=== PATIENT | male | born 1950 | race Caucasian/White ===

== ENCOUNTER 2017-03-26 18:57 | Emergency (ER) | payer MEDICARE, OTHER ==
[2017-03-26 19:40] LABS: BASOPHILS % 0.6 (0.0-1.5); EOSINOPHILS % 1.8 % (0.0-6.8); MEAN CORPUSCULAR HEMOGLOBIN 30.9 pg (28.0-34.0); MEAN CORPUSCULAR VOLUME 95.2 fl (80.0-100.0); MONOCYTES % 4.2 % (0.0-11.0); NEUTROPHILS # 6.1 # k/uL (1.4-7.7)
--- NOTE | 2017-03-26 20:02 | ED Physician Documentation ---
Lower Extremity Problem - HISTORIAN Historian: patient - HPI Stated Complaint: mild discomfort behind Rt knee Chief Complaint: Lower Extremity Problem Additional Information: pt. states that prior to arrival he had a pain in his right leg posteriolateral aspect of hamstrings while he was running it down his left leg in bed. [place] sharp, very fleeting, gone now. took picture showing no erythema but enlarged distal biceps femoris muscle as if spasmed. Location of Injury: R leg Onset: minutes (30) Timing: gone now Duration: sudden-Onset Recent Injury: No Context: other (pt. has been doing post operative walking exercise) Where: home Severity: mild Quality: pain, swelling. denies: tenderness, numbness, tingling Front/Back of Body, Lg (Color): 1 - pain Exacerbated By: nothing Relieved By: nothing Associated Symptoms: denies: chest pain, shortness of breath, rapid heart rate, fainting Further Comments: no - ROS CONST: no problems MS/SKIN/LYMPH: leg swelling (minor swelling without erythema distal right biceps femoris) CVS/RESP: none GI/: none EYES/ENT: none NERUO/PSYCH: denies: headache, difficulty walking, dizziness, anxiety, depression - PAST HX Past History: lumbar disc disease PE Risk Factors: recent surgery Other History: hypertension, other (gout) Surgeries/Procedures: back surgery Immunizations: referred to PCP Allergies/Adverse Reactions: Allergies Allergy/AdvReac Type Severity Reaction Status Date / Time No Known Allergies Allergy Verified 03/26/17 19:21 Home Medications: Ambulatory Orders Medication Instructions Recorded Allopurinol [Zyloprim] 100 mg PO D 03/26/17 Enalapril Maleate [Enalapril 10 mg PO D 03/26/17 Maleate] Potassium Chloride [Klor-Con M20] 20 meq PO BID 03/26/17 - SOCIAL HX Smoking History: non-smoker Alcohol Use: none Drug Use: none - FAMILY HX Family History: no significant history - VITAL SIGNS Vital Signs: Vital Signs Temp Pulse Resp BP Pulse Ox 98.9 F 78 16 137/83 95 03/26/17 18:58 03/26/17 20:21 03/26/17 20:21 03/26/17 20:21 03/26/17 20:21 - REVIEWED ASSESSMENTS Nursing Assessment Reviewed: Yes Vitals Reviewed: Yes Progress - Results/Orders Results/Orders: cbc, d-dimer ordered - Progress Progress: pt. stable entire time in er, absolutely no distress, no warmth, no edema, no erythema, Estiven's neg, no pain with walking, no muscle spasm or edema Critical Care Note - Critical Care Note Total Time (mins): 0 ED Results Lab/Radiology - Lab Results Lab Results: Lab Results 03/26/17 03/26/17 19:22 19:22 WBC 9.40 K/ul K/ul (4.00-12.00) RBC 4.00 M/ul M/ul (3.90-5.20) Hgb 12.4 g/dL g/dL (12.0-18.0) Hct 38.1 % % (37.0-53.0) MCV 95.2 fl fl (80.0-100.0) MCH 30.9 pg pg (28.0-34.0) MCHC 32.5 g/dL g/dL (30.0-36.0) RDW 14.1 % % (11.3-14.3) Plt Count 433 K/mm3 H K/mm3 (130-400) Neut % (Auto) 65.1 % % (39.0-79.0) Lymph % (Auto) 26.7 % % (16.0-50.0) [place] % (Auto) 4.2 % % (0.0-11.0) Eos % (Auto) 1.8 % % (0.0-6.8) Baso % (Auto) 0.6 (0.0-1.5) Neut # (Auto) 6.1 # k/uL # k/uL (1.4-7.7) Lymph # (Auto) 2.5 # k/uL # k/uL (0.6-4.0) [place] # (Auto) 0.4 # k/uL # k/uL (0.0-0.9) Eos # (Auto) 0.2 # k/uL # k/uL (0.0-0.6) Baso # (Auto) 0.1 # k/uL # k/uL (0.0-0.5) Reactive Lymphs % 1.6 % % (0.0-5.0) Reactive Lymphs # 0.2 # k/uL # k/uL (0.0-0.8) D-Dimer 935 ng/mL H ng/mL (6.0-682) - Radiology Radiology Impressions: none taken - Orders Orders: ED Orders Category Date Time Status CBC/PLATELET/DIFF Routine Lab 03/26/17 19:22 Completed D DIMER Routine Lab 03/26/17 19:22 Completed Lower Extremity Problem - EXAM General Appearance: no distress Hips: bilateral hip: non-tender, normal inspection, normal range of motion, no evidence of injury Legs: bilateral: non-tender, normal inspection (right leg more atrophied than left, chronic problem according to pt.), normal range of motion, no evidence of injury Knees: bilateral: non-tender, normal inspection, normal range of motion, no evidence of injury Ankle: bilateral: non-tender, normal inspection, normal range of motion, no evidence of injury Foot: bilateral foot: non-tender, normal inspection, normal range of motion, no evidence of injury DTR - Lower Extremities: knee (R): 2+, knee (L): 2+, ankle (R): 2+, ankle (L): 2 + Neuro/Tendon: normal sensation, normal motor functions, no evidence tendon injury. No: motor deficit, sensory deficit EENT: eye inspection normal, ENT inspection normal, pharynx normal, no signs of dehydration, DAI, no nystagmus, TM's nml RESPIRATORY: no resp distress, chest non-tender, breath sounds normal. No: wheezes, rales, rhonchi CVS: reg rate & rhythm, heart sounds normal, equal pulses, no murmur, no gallop , PMI nml, no JVD, no friction rub JOINT: joints nml, nml ROM VASCULAR: no vascular compromise, pulses full/equal, right fem, right popl, right dors-pedis, right post-tib. No: pale/cool extremity, poor cap refill, Estiven's sign, decreased/absent pulse NEURO/PSYCH: oriented X3, CN's nml as tested, motor nml, sensation nml, mood/ affect nml, cognition normal SKIN: warm/dry, normal color, other (no erythema right leg) BACK: normal inspection, no CVA tenderness Discharge Clincal Impression: Muscle strain, lower leg Qualifiers: Encounter type: initial encounter Laterality: right Qualified Code(s): S86.911A - Strain of unspecified muscle(s) and tendon(s) at lower leg level, right leg, initial encounter Referrals: Primary Doctor,No [Primary Care Provider] - 2 Days Additional Instructions: As pt. is pain free with no reproduceable pain and is ambulating well without pain, he may continue all post operative instructions as per his surgeon. Return to ER if pain returns or if any chnage occurs. Condition: Stable Disposition: 01 HOME, SELF-CARE Decision to Admit: NO Decision Time: 19:59
[2017-03-26 20:27] VITALS: BP 137/83
== END 2017-03-26 20:10 | disposition home or self-care (01) ==
LOC: ED 18:57
DX: S86.911A Strain of unspecified muscle(s) and tendon(s) at lower leg level, right leg, initial encounter (principal); X58.XXXA Exposure to other specified factors, initial encounter; Y93.9 Activity, unspecified; Y99.9 Unspecified external cause status
CPT/HCPCS: 85025; 85379; 99283